=== PATIENT | male | born 1960 | race American Indian/Alaskan Native ===

== ENCOUNTER 2020-05-08 03:42 | Outpatient (CLI) | payer BC, SELFPAY ==
[2020-05-08 20:39] LABS: SARS-CoV-2 RNA PCR Negative
== END 2020-05-08 03:43 | disposition home or self-care (01) ==
LOC: ANHCOVIDDT 03:42
PROVIDERS: PCP Family Medicine; Visit Provider Otolaryngology
DX: Z01.812 Encounter for preprocedural laboratory examination (principal); Z20.828 Contact with and (suspected) exposure to other viral communicable diseases
CPT/HCPCS: 87635; C9803; U0003

== ENCOUNTER 2020-05-09 07:49 | Outpatient (CLI) | payer BC, SELFPAY ==
--- NOTE | 2020-05-09 07:53 | ECG_ITS ---
Measurements Intervals [place] Rate: 86 P: 31 NH: 164 QRS: 37 QRSD: 102 T: -4 QT: 368 QTc: 442 Interpretive Statements SINUS RHYTHM DELAYED PRECORDIAL R/S TRANSITION BORDERLINE ST-T WAVE ABNORMALITY- INFERIOR LEADS BASELINE ARTIFACT- I, III, AVL, V6 BORDERLINE ECG Electronically Signed On 05-09-2020 9:16:32 STAFF PHYSICAL THERAPIST by Sidney Menjivar D.O.
== END 2020-05-09 07:50 | disposition home or self-care (01) ==
LOC: ANHSURGERY 07:53
PROVIDERS: PCP Family Medicine; Visit Provider Otolaryngology
DX: Z01.818 Encounter for other preprocedural examination (principal); I10 Essential (primary) hypertension; R94.31 Abnormal electrocardiogram [ECG] [EKG]
CPT/HCPCS: 93005

== ENCOUNTER 2020-05-11 00:40 | Day surgery (SDC) | payer BC, SELFPAY ==
[2020-05-01 14:30] VITALS: BMI 36.1
--- NOTE | 2020-05-10 06:14 | PM.HPGS ---
History of Present Illness History of Present Illness Consent: Risks, benefits, and alternatives have been discussed and questions answered. Patient agrees to proceed with procedure. Chief complaint: lesion left buccal mucossa Narrative: Josef Jang Jr. is a 59 year old male he is lesion left buccal mucosa he is admitted for elective excision Review of Systems Review of Systems: All systems reviewed & are unremarkable except as noted in HPI and below Allergic/Immunologic: Comments: as an elective elective excision of a lesion of the left buccal mucosa is the plan [facility] Past Medical History Medical History (Updated 04/24/20 @ 09:16 by Rocío Crocker) Fracture of cervical spinous process HTN (hypertension), benign Surgical History Surgical History History of colon resection due to lipoma History of ear surgery left tympanostomy/mastoid History of repair of right rotator cuff History of shoulder surgery left History of surgery on left wrist Family History Family History Sibling Diabetes mellitus Mother Hypertension Cerebrovascular accident Family history of lupus erythematosus Father Family history of malignant neoplasm of brain Social History Social History Smoking status: Light tobacco smoker Tobacco type: pipe Additional smoking assessment comments: 4-5X PER YEAR Alcohol intake: never Substance use: never Substance use type: does not use Gender identity (if verbalized by the patient): Male Meds Home Medications and Allergies Home Medications Medication Instructions Recorded Confirmed Type quinapril 20 mg tablet 20 mg PO BID #180 tablet 02/28/20 05/01/20 Rx amlodipine 10 mg PO QPM 05/01/20 05/01/20 History fexofenadine-pseudoephedrine 1 tablet PO DAILY 05/01/20 05/01/20 History [Jhoana-D 24 Hour] Allergies Allergy/AdvReac Type Severity Reaction Status Date / Time No Known Allergies Allergy Verified 05/01/20 14:30
--- NOTE | 2020-05-11 06:22 | WPDHPUPDATE1 ---
History and Physical Update Update Date/Time: 05/11/20 06:22 History and Physical has been reviewed, including an updated exam of the patient. There are NO changes in the patient's condition. Risks, benefits, and alternatives have been discussed and questions answered. Patient agrees to proceed with procedure.
[2020-05-11 08:15] VITALS: BP 149/96; PULSE 80; RESP 18; TEMP 37.1; O2SAT 100
[2020-05-11] MEDS: LACTATED RINGERS 1,000 ML 30 ML IV CONT (08:30)
--- NOTE | 2020-05-11 08:46 | WPDANESEPPF ---
Anes - Initial Pre Proc Eval Procedure: Operation Date: 05/11/20 09:45 Proposed Procedures p Excision Lesion Left Buccal Mucosa - Alfredo Villasenor MD Date/Time: 05/11/20 08:46 Surgeon: Alfredo Villasenor MD Pre Op Diagnosis: lesion left buccal mucossa Patient Data Age: 59 Gender: M Height: 6 ft 0.5 in Weight: 122.47 kg Allergies Allergy/AdvReac Type Severity Reaction Status Date / Time No Known Allergies Allergy Verified 05/01/20 14:30 Home Medications Medication Instructions Recorded Confirmed Type quinapril 20 mg tablet 20 mg PO BID #180 tablet 02/28/20 05/01/20 Rx amlodipine 10 mg PO QPM 05/01/20 05/01/20 History fexofenadine-pseudoephedrine 1 tablet PO DAILY 05/01/20 05/01/20 History [Jhoana-D 24 Hour] Patient hx anesthesia problems: post op nausea/vomiting Family hx anesthesia problems: none PMFSH Past Medical History Medical History Fracture of cervical spinous process HTN (hypertension), benign Hypertension Surgical History Surgical History History of colon resection due to lipoma History of ear surgery left tympanostomy/mastoid History of repair of right rotator cuff History of shoulder surgery left History of surgery on left wrist Family History Family History Sibling Diabetes mellitus Mother Hypertension Cerebrovascular accident Family history of lupus erythematosus Father Family history of malignant neoplasm of brain Social History Social History Smoking status: Light tobacco smoker Tobacco type: pipe Additional smoking assessment comments: 4-5X PER YEAR Alcohol intake: never Substance use: never Substance use type: does not use Gender identity (if verbalized by the patient): Male Anes - Eval Final PreProcedure Day of Procedure 05/11/20 08:46 Patient weight: obese Heart: regular rate and rhythm Lungs: clear to auscultation Airway: Mallampati scale class II Neurological: alert and oriented Last oral intake: >/= 8 hours ASA classification: II Emergent: no Anesthetic plan: proceed Anesthesia type and monitoring: general ETT and standard monitoring Informed Consent: The patient's anesthetic plan and its attendant risks and benefits were discussed with the patient/family/POA. Questions were solicited and answers provided to the satisfaction of the patient/family/POA.
[2020-05-11] MEDS: SCOPOLAMINE 1.5 MG PATCH TRANSDERM (08:54)
[2020-05-11] MEDS: LIDO 1%/EPINEPHRINE 1:100,000 20 ML VIAL INFILTRATE (09:42)
--- NOTE | 2020-05-11 09:46 | PM.PROC ---
Procedure Note - Detailed Date of procedure: 05/11/20 Pre-op diagnosis: lesion left buccal mucossa Post-op diagnosis: same Procedure performed: Excision lesion left buccal mucosa Description of procedure: Patient is a renal esthesia the lesion of the buccal mucosa was injected with xylocaine with adrenaline elliptically excising the base cauterized Anesthesia: GLMA Surgeon: Alfredo Villasenor MD Estimated blood loss (mL): 5 Drains: No Packing: No Pathology: yes Complications: No immediate complications Condition: stable Findings: Cystic lesion buccal mucosa
[2020-05-11 09:49] VITALS: BP 132/1; PULSE 88; RESP 16; TEMP 36.7; O2SAT 98
[2020-05-11 10:00] VITALS: BP 131/78; PULSE 85; RESP 16; O2SAT 98
[2020-05-11 10:15] VITALS: BP 135/88; PULSE 83; RESP 15; O2SAT 96
[2020-05-11 10:22] VITALS: BP 138/93; PULSE 74; RESP 16
[2020-05-11 10:49] VITALS: BP 136/89; PULSE 77; RESP 16
== END 2020-05-11 10:50 | disposition home or self-care (01) ==
PROVIDERS: PCP Family Medicine; Visit Provider Otolaryngology
PROC: (CPT 40810; principal; 2020-05-11 09:45)
DX: K13.79 Other lesions of oral mucosa (principal); I10 Essential (primary) hypertension; F17.290 Nicotine dependence, other tobacco product, uncomplicated
CPT/HCPCS: 40810; 88305; A9270; J2704; J7120

== ENCOUNTER → 2021-02-09 03:12 | Outpatient (CLI) | payer BC, SELFPAY ==
[2021-02-10 01:37] LABS: SARS-CoV-2 RNA PCR Negative
== END ==
PROVIDERS: PCP Family Medicine; Visit Provider Internal Medicine Gastroenterology
DX: Z01.812 Encounter for preprocedural laboratory examination (principal); Z20.822 Contact with and (suspected) exposure to COVID-19
CPT/HCPCS: C9803; U0003; U0005

== ENCOUNTER 2021-02-12 02:02 | Day surgery (SDC) | payer BC, SELFPAY ==
[2021-02-01 12:16] VITALS: BMI 36.8
[2021-02-12 10:56] VITALS: BP 152/98; PULSE 77; RESP 18; TEMP 36.1; O2SAT 99; BMI 36.7
--- NOTE | 2021-02-12 10:56 | PM.HPGS ---
History of Present Illness History of Present Illness Consent: Risks, benefits, and alternatives have been discussed and questions answered. Patient agrees to proceed with procedure. Chief complaint: neoplasm screening Narrative: Josef Jang Jr. is a 60 year old male Referred for colon cancer screening Review of Systems Review of Systems: All systems reviewed & are unremarkable except as noted in HPI and below PMFSH Past Medical History Medical History Fracture of cervical spinous process HTN (hypertension), benign Hypertension Surgical History Surgical History History of colon resection due to lipoma History of ear surgery left tympanostomy/mastoid History of repair of right rotator cuff History of shoulder surgery left History of surgery on left wrist S/P spinal surgery c-spine Family History Family History Sibling Diabetes mellitus Mother Hypertension Cerebrovascular accident Family history of lupus erythematosus Father Family history of malignant neoplasm of brain Social History Social History Smoking status: Current some day smoker Tobacco type: pipe Second hand tobacco smoke exposure: No Additional smoking assessment comments: 4-5X PER YEAR Alcohol intake: current Alcohol use details: Monthly Substance use: never Substance use type: does not use Living arrangements: with family Gender identity (if verbalized by the patient): Male Spiritual care concerns: No Meds Home Medications and Allergies Home Medications Medication Instructions Recorded Confirmed Type Jhoana-D 24 Hour 1 tablet PO DAILY 05/01/20 02/12/21 History amlodipine 5 mg tablet 5 mg PO DAILY #90 tablet 01/15/21 02/12/21 Rx quinapril 20 mg tablet 20 mg PO BID #180 tablet 01/15/21 02/12/21 Rx Allergies Allergy/AdvReac Type Severity Reaction Status Date / Time No Known Allergies Allergy Verified 02/12/21 10:55 Exam Const: General: alert Orientation/consciousness: patient oriented x3 Resp: Auscultation: clear to auscultation bilaterally Cardio: Rhythm: regular rhythm GI: GI Palp: Yes Soft to palpation and No Tenderness to palpation present (GI) Neuro: General: patient oriented x3 Assessment and Plan Assessment and plan (1) Colon cancer screening: Code(s): Z12.11 - Encounter for screening for malignant neoplasm of colon Status: Acute Assessment and Plan: Colonoscopy with possible biopsy or polypectomy or cautery or injection of substances.
[2021-02-12] MEDS: LACTATED RINGERS 1,000 ML 150 ML IV CONT (11:07)
--- NOTE | 2021-02-12 11:29 | WPDANESEPPF ---
Anes - Initial Pre Proc Eval Procedure: Operation Date: 02/12/21 11:30 Proposed Procedures p Screening Colonoscopy - Kwame Poole MD Date/Time: 02/12/21 11:29 Surgeon: Kwame Poole MD Pre Op Diagnosis: neoplasm screening Patient Data Age: 60 Gender: M Height: 1.83 m Weight: 122.8 kg Last Vital Signs Temp 36.1 C L 02/12/21 10:56 Pulse 77 02/12/21 10:56 Resp 18 02/12/21 10:56 BP 152/98 H 02/12/21 10:56 Pulse Ox 99 02/12/21 10:56 Allergies Allergy/AdvReac Type Severity Reaction Status Date / Time No Known Allergies Allergy Verified 02/12/21 10:55 Home Medications Medication Instructions Recorded Confirmed Type Jhoana-D 24 Hour 1 tablet PO DAILY 05/01/20 02/12/21 History amlodipine 5 mg tablet 5 mg PO DAILY #90 tablet 01/15/21 02/12/21 Rx quinapril 20 mg tablet 20 mg PO BID #180 tablet 01/15/21 02/12/21 Rx Patient hx anesthesia problems: none Family hx anesthesia problems: none PMFSH Past Medical History Medical History Fracture of cervical spinous process HTN (hypertension), benign Hypertension Surgical History Surgical History History of colon resection due to lipoma History of ear surgery left tympanostomy/mastoid History of repair of right rotator cuff History of shoulder surgery left History of surgery on left wrist S/P spinal surgery c-spine Family History Family History Sibling Diabetes mellitus Mother Hypertension Cerebrovascular accident Family history of lupus erythematosus Father Family history of malignant neoplasm of brain Social History Social History Smoking status: Current some day smoker Tobacco type: pipe Second hand tobacco smoke exposure: No Additional smoking assessment comments: 4-5X PER YEAR Alcohol intake: current Alcohol use details: Monthly Substance use: never Substance use type: does not use Living arrangements: with family Gender identity (if verbalized by the patient): Male Spiritual care concerns: No Anes - Eval Final PreProcedure Day of Procedure 02/12/21 11:29 Patient weight: obese Heart: regular rate and rhythm Lungs: clear to auscultation Airway: Mallampati scale class II Neurological: alert and oriented Last oral intake: >/= 8 hours ASA classification: III Emergent: no Anesthetic plan: proceed Anesthesia type and monitoring: general GIVS and standard monitoring Informed Consent: The patient's anesthetic plan and its attendant risks and benefits were discussed with the patient/family/POA. Questions were solicited and answers provided to the satisfaction of the patient/family/POA.
[2021-02-12 11:51] VITALS: BP 102/65; PULSE 80; RESP 19; O2SAT 97
[2021-02-12 12:01] VITALS: BP 105/69; PULSE 74; RESP 14; O2SAT 97
[2021-02-12 12:11] VITALS: BP 127/84; PULSE 75; RESP 13; O2SAT 99
== END 2021-02-12 12:30 | disposition home or self-care (01) ==
PROVIDERS: PCP Family Medicine; Visit Provider Internal Medicine Gastroenterology
PROC: 0DJD8ZZ Inspection of Lower Intestinal Tract, Via Natural or Artificial Opening Endoscopic (ICD-10-PCS; CPT 45378; principal; 2021-02-12 11:30)
DX: Z12.11 Encounter for screening for malignant neoplasm of colon (principal); K57.30 Diverticulosis of large intestine without perforation or abscess without bleeding; Z98.0 Intestinal bypass and anastomosis status; I10 Essential (primary) hypertension; F17.209 Nicotine dependence, unspecified, with unspecified nicotine-induced disorders; E66.9 Obesity, unspecified; Z68.36 Body mass index [BMI] 36.0-36.9, adult
CPT/HCPCS: 45378; J2704; J7120

== ENCOUNTER → 2021-12-18 13:41 | Outpatient (CLI) | payer OTHER, SELFPAY ==
--- NOTE | ~2021-12-18 | XR_ITS ---
EXAM: [id number] DATE: 12/18/2021 14:04 HISTORY: M54.2 - Cervicalgia . COMPARISON: None available. FINDINGS: ACDF spanning C4-C7 without hardware-related complication Craniocervical association and at lantoaxial joint are aligned. No prevertebral soft tissue swelling. Vertebral bodies are aligned. Rene tebral body heights and disc spaces are maintained. Multilevel facet and uncovertebral joint hypertro phy. IMPRESSION: No acute fracture or traumatic malalignment in the cervical spine. Uncomplicated appearin g C4-C7 ACDF. Reviewed, dictated and finalized at location K. IMPRESSION: No acute fracture or traumatic malalignment in the cervical spine. Uncomplicated appearing C4-C7 ACDF.
== END ==
PROVIDERS: PCP Family Medicine; Visit Provider Family Medicine
DX: M54.2 Cervicalgia (principal)
CPT/HCPCS: 72040